=== PATIENT | female | born 1965 | race Caucasian/White ===

== ENCOUNTER 2024-08-11 22:21 | Emergency (ER) | payer BC, SELFPAY ==
[2024-08-11 22:28] VITALS: BP 149/96
[2024-08-11 22:41] VITALS: BMI 23.3
[2024-08-11 22:49] LABS: % Basophils 0.6 % (0-2); % Eosinophils 1.5 % (0-6); % Immature Granulocytes 0.3 % (0-0.5); % Lymphocytes 24.3 % (20.5-51.1); % Monocytes 7.4 % (1.7-9.3); % Neutrophils 65.9 % (42.2-75.2); Absolute Eosinophils 0.1 10^3/uL (0-0.7); Absolute Lymphocytes 1.6 10^3/uL (1.2-3.4); Absolute Monocytes 0.5 10^3/uL (0.1-0.6); Absolute Neutrophils 4.3 10^3/uL (1.4-6.5); Hematocrit 42.4 % (37.0-47.0); Hemoglobin 14.5 g/dL (12.0-16.0); Mean Corp Hgb Conc. 34.2 g/dL (33.0-37.0); Mean Corpuscular Hgb 32.2 pg (27.0-31.0); Nucleated Red Blood Cells % 0 %; Platelet Count 275 10^3/uL (130-400); Red Blood Cell Count 4.51 10^6/uL (4.20-5.40); Red Cell Dist. Width 12.8 % (11.5-14.5); White Blood Cell Count 6.5 10^3/uL (4.8-10.8)
[2024-08-11 23:00] LABS: Lactic Acid 0.7 mmol/L (0.7-2.0)
[2024-08-11 23:04] LABS: ALT (SGPT) 14 U/L (0-35); AST (SGOT) 20 U/L (14-36); Albumin 4.5 g/dl (3.5-5.0); Alkaline Phosphatase 60 U/L (38-126); Blood Urea Nitrogen 16 mg/dl (7-17); Carbon Dioxide 30 mmol/L (22-30); Chloride 103 mmol/L (98-107); Estimated Creatinine Clearance 75 ml/min; Glucose 121 mg/dl (70-99); Lipase 106 U/L (23-300); Potassium 4.7 mmol/L (3.5-5.1); Sodium 142 mmol/L (135-145); Total Bilirubin 0.5 mg/dl (0.2-1.3); Total Protein 7.5 g/dl (6.3-8.2); eGFR > 60.00
--- NOTE | 2024-08-11 23:19 | ED.GENMED ---
History of Present Illness
General
Chief Complaint: Abdominal Pain
Source: patient and spouse
Time Seen by Provider: 08/11/24 22:37
Nursing documentation reviewed up to this point in time: agreed with
History of Present Illness
History of Present Illness:
Pleasant 58-year-old female she department with right ankle pain. She is concerned that she has a 'strangulated inguinal hernia'. She states that she has had an incarcerated umbilical hernia and she states that the pain is similar. I was called
to triage to evaluate the patient. They had her lie down and she definitely had an inguinal hernia. It was painful to the touch but I was able to get it to slightly reduce. Patient was brought back to the room and given ice while we giovana labs.
She states that the application of the ice and her gentle massage was able to reduce the hernia. Patient is in no pain at this point.
Review of Systems
Review of Systems
Allergies reviewed?: Yes
All Other Systems: ROS reviewed and negative except as documented in HPI and ROS
Constitutional: Reports no symptoms
EENT: Reports no symptoms
Respiratory: Reports no symptoms
Cardiac: Reports no symptoms
ABD/GI: Reports abdominal pain
: Reports no symptoms
Musculoskeletal: Reports no symptoms
Skin: Reports no symptoms
Neurological: Reports no symptoms
Endocrine: Reports no symptoms
Hematologic/Lymphatic: Reports no symptoms
Psychiatric: Reports anxiety
Phy Exam
General Physical Exam
General Presentation: well appearing and moderate distress (Upon arrival. When brought back to the room patient in no distress as right inguinal hernia reduced)
General age: appears stated age
General Skin: warm
General Habitus: normal
General Mental: alert
Cardiovascular Exam
Cardiovascular Exam: regular rate/rhythm and no edema
Pulmonary Exam
Pulmonary Exam: lungs clear and no respiratory distress
Neurological Exam
Neurological Exam: alert and oriented x3
Musculoskeletal Exam
Musculoskeletal Exam: full ROM
Skin Exam
Skin Exam: normal color and warm/dry
Psychiatric Exam
Psychiatric Exam: normal mood/affect
Course
Orders/Labs/Results
Orders:
Orders
08/11/24 22:37
HYDROmorphone [Dilaudid] 1 mg IV NOW STA
Ondansetron Injectable [Zofran] 4 mg IV NOW STA
08/11/24 22:42
Complete Blood Count/With Diff Urgent
Comprehensive Metabolic Panel Urgent
Lactic Acid Urgent
Lipase Urgent
08/12/24
CT Abd/pelvis W Iv Cont Urgent
Reason For Exam: right inguinal pain
08/12/24 00:26
0.9% Sodium Chloride 1000 ml [Nss] 1,000 ml IV BOLUS
Abnormal Lab Results
08/11/24
22:42
MCH 32.2 H pg
(27.0-31.0)
Glucose 121 H mg/dl
(70-99)
08/11/24 22:42
08/11/24 22:42
Vital Signs
Initial and Last Documented VS:
Initial Vital Signs
Temp Pulse Resp BP Pulse Ox
98.6 F 86 18 149/96 99
08/11/24 22:28 08/11/24 22:28 08/11/24 22:28 08/11/24 22:28 08/11/24 22:28
Last Documented Vital Signs
Temp Pulse Resp BP Pulse Ox
98.5 F 62 16 106/71 99
08/11/24 23:37 08/12/24 01:35 08/12/24 01:35 08/12/24 01:35 08/12/24 01:35
*Critical Care Note
Total Time (30-74mins, 75-104mins- exclusive of procedures): Not Applicable
Update Note
Update Note:
NAME: RAJIV NICKERSON
DATE OF EXAM: 08/12/2024
Patient No: [id number]
Physician: ROWENA^ORIANA^Ayesha
Date of : 1965
Past Medical History (entered by Technologist):
Reason For Exam (entered by Technologist): c/f rt strangulated hernia
Other Notes (entered by Technologist): no priors
Additional Information (per Vision Radiologist): Concern for strangulated
Abrupt onset of right inguinal pain, intense in nature
Palpable lump. Initially unable to reduce in the ER but then was reduced
However recurred with increasing pain upon ambulation
CT abdomen and pelvis with contrast
IMPRESSION:
Small fat and fluid containing right inguinal hernia
Possible sign of incarcerated fat, though no appreciable fat stranding
No involvement of bowel
Normal appendix
No acute bowel process
Colonic diverticulosis without evidence for diverticulitis
Atherosclerotic calcifications abdominal aorta and iliofemoral vessels
Coronary artery calcifications
Degenerative changes in the spine and pelvis
Findings discussed with Dr. Saleh at 1:14 AM ET
ED Attending Note
-
Portions of this chart may have been created with voice recognition software.� Occasional wrong word or��sound alike� substitutions may have occurred due to the inherent limitations of voice recognition software.
Discharge Plan
Departure
Patient Disposition: Home (Routine Discharge)
Date of Disposition: 08/12/24
Time of Disposition: 01:23
Patient with high blood pressure during this ER visit?: No
Condition: Good
Discharge Problem:
Hernia, inguinal, right
Instructions: Groin hernias, Abdominal Pain
Referrals:
Lance Pal MD [Active] - Next open appointment
NONE,* [Family Provider] -
Activity Restrictions/Additional Instructions:
Thank You for choosing [facility].
It was a pleasure meeting you and taking part in your care. We hope for your continued healing and wellness.
Please read discharge instructions in their entirety. However, they are for general education and may not describe your exact diagnosis at discharge. Information on your ER visit and medical conditions were discussed with you along with appropriate
follow up information...
If indicated, please take your medications as instructed and indicated on discharge paperwork.
Please schedule a follow up appointment as directed. Call to schedule an appointment
Please return to the emergency department with ANY change in, persisting, or worsening of symptoms. If any of your symptoms do not improve, or persist, or become more severe within 6-12 hours, please return to the emergency department for further
care.
Please return to the emergency department if you develop a headache, neck pain/stiffness, fever greater than 100.4F, chest pain, shortness of breath, persistent nausea, vomiting, slurred speech, difficulty walking, numbness/tingling, weakness, signs
of infection or any other symptoms that are worrisome to you.
If you have any questions or concerns please do not hesitate to call the Hospital at or E-mail me directly at [email or web address]
Interventions
Interventions:
*Risk Screen - Suicide Last Done: 08/11/24 22:29
*General Assessment Last Done: 08/11/24 22:29
*Neglect/Abuse Screening Last Done: 08/11/24 22:29
*ED- Fall Risk Assessment Last Done: 08/12/24 01:35
*ED COVID-19 Vaccine History Last Done: 08/11/24 22:29
*Nursing Disposition Last Done: 08/12/24 01:35
UF-Gjlshp-Bidwnkfbki Assessment Last Done: 08/11/24 23:35
Discharge Date and Time
Discharge Date/Time: 08/12/24 01:35
Print Language: CITIZEN [place]
[2024-08-11 23:37] VITALS: BP 107/70
[2024-08-12 00:24] VITALS: BP 98/63
[2024-08-12] MEDS: NSS 1000 IV (00:31)
[2024-08-12 01:35] VITALS: BP 106/71
== END 2024-08-12 01:35 | disposition home or self-care (01) ==
LOC: EMR 22:21
PROVIDERS: EMERGENCY PHYSICIAN Student in an Organized Health Care Education/Training Program
DX: K40.90 Unilateral inguinal hernia, without obstruction or gangrene, not specified as recurrent (principal)
CPT/HCPCS: 96360; 99284; 74177; 80053; 83605; 83690; 85025; Q9967